=== PATIENT | male | born 1990 | race Caucasian/White ===

== ENCOUNTER 2020-08-22 00:15 | Emergency (ER) | payer OTHER ==
[~2020-08-22] VITALS: Ht 180.3 cm; Wt 83.9 kg
[2020-08-22 00:29] VITALS: Ht 180.3 cm; Wt 83.9 kg
[2020-08-22] MEDS ORDERED: CEPHALEXIN500 MG PO (01:16)
[2020-08-22 01:23] VITALS: BP 143/77
== END 2020-08-22 01:23 | disposition home or self-care (01) ==
LOC: ED 00:15
DX: L02.413 Cutaneous abscess of right upper limb (principal); L03.113 Cellulitis of right upper limb; E11.9 Type 2 diabetes mellitus without complications
CPT/HCPCS: 82962; J2001